=== PATIENT | male | born 1970 | race Caucasian/White ===

== ENCOUNTER 2017-11-02 18:40 | Emergency (ER) | payer OTHER ==
[~2017-11-02] VITALS: Ht 175.3 cm; Wt 104.5 kg
[~2017-11-02 18:40] MED LIST: AMOX/K CLAV875 M1 PO; AMOXICILLIN875 MG PO; CIPRODEX1 ML OT; FLEXERIL5 M1 PO
[2017-11-02 20:24] VITALS: BP 144/95
== END 2017-11-02 20:32 | disposition home or self-care (01) | DRG 605 ==
LOC: ED 18:40
DX: S70.12XA Contusion of left thigh, initial encounter (principal); V53.5XXA Driver of pick-up truck or van injured in collision with car, pick-up truck or van in traffic accident, initial encounter